=== PATIENT | female | born 1945 | race Caucasian/White ===

== ENCOUNTER → 2019-09-21 | Outpatient (CLI) | payer OTHER | LOC: SJCVC 13:53 | DX: R94.31 Abnormal electrocardiogram [ECG] [EKG] (principal); I21.29 ST elevation (STEMI) myocardial infarction involving other sites; I48.0 Paroxysmal atrial fibrillation; R07.89 Other chest pain; I47.1 Supraventricular tachycardia; R00.2 Palpitations; I10 Essential (primary) hypertension; E78.5 Hyperlipidemia, unspecified ==

== ENCOUNTER → 2019-11-13 | Outpatient (CLI) | payer OTHER | LOC: SJCVCIMAG 11-06 10:07 | PROVIDERS: ATTEND Internal Medicine Cardiovascular Disease | DX: R00.2 Palpitations (principal); I48.0 Paroxysmal atrial fibrillation; I47.1 Supraventricular tachycardia; I10 Essential (primary) hypertension; E78.5 Hyperlipidemia, unspecified ==

== ENCOUNTER → 2020-06-03 | Outpatient (CLI) | payer OTHER | LOC: SJCVC 14:51 | PROVIDERS: ATTEND Internal Medicine Cardiovascular Disease | DX: R94.31 Abnormal electrocardiogram [ECG] [EKG] (principal); I48.0 Paroxysmal atrial fibrillation; I10 Essential (primary) hypertension; E78.5 Hyperlipidemia, unspecified; I47.1 Supraventricular tachycardia; D68.59 Other primary thrombophilia; Z79.899 Other long term (current) drug therapy; Z88.0 Allergy status to penicillin; Z88.8 Allergy status to other drugs, medicaments and biological substances ==

== ENCOUNTER → 2021-02-20 | Outpatient (CLI) | payer OTHER | LOC: SJCVC 13:39 | PROVIDERS: ATTEND Internal Medicine Cardiovascular Disease | DX: R94.31 Abnormal electrocardiogram [ECG] [EKG] (principal); I48.0 Paroxysmal atrial fibrillation; E78.5 Hyperlipidemia, unspecified; I47.1 Supraventricular tachycardia; Z79.899 Other long term (current) drug therapy; Z88.0 Allergy status to penicillin; Z88.8 Allergy status to other drugs, medicaments and biological substances ==